=== PATIENT | male | born 1955 | race Asian ===

== ENCOUNTER 2017-10-22 21:55 | Emergency (ER) | payer MEDICAID ==
[~2017-10-22] VITALS: Ht 167.6 cm; Wt 68.2 kg
[2017-10-23] MEDS ORDERED: SODIUM CHLORIDE 0.9% 250 ML IRRIG SOLUTION BOTTLE IRRIG ONE (05:15)
[2017-10-23] MEDS ORDERED: LIDOCAINE HCL/PF 1% 5 ML VIAL INJ ONE (05:15)
[2017-10-23 06:40] VITALS: BP 132/87
== END 2017-10-23 06:53 | disposition home or self-care (01) ==
LOC: EMS 21:57
DX: S51.012A Laceration without foreign body of left elbow, initial encounter (principal); S81.811A Laceration without foreign body, right lower leg, initial encounter; W25.XXXA Contact with sharp glass, initial encounter; Y93.89 Activity, other specified; Y92.89 Other specified places as the place of occurrence of the external cause; Y99.8 Other external cause status
CPT/HCPCS: 12004; 99284; J3490